=== PATIENT | female | born 1950 | race Caucasian/White ===

== ENCOUNTER 2021-04-11 12:31 | Inpatient (IN) | payer MEDICARE, BC ==
[2021-04-11 12:57] LABS: #Lymphocytes 1.1 thou/uL (1.20-3.40); #Monocytes 0.8 thou/uL (0.11-0.59); #Neutrophils 7.8 thou/uL (1.40-6.50); %Basophils 0.2 % (0.0-1.0); %Eosinophils 0.1 % (0.0-10.0); %Lymphocytes 11.6 % (21.0-51.0); %Monocytes 8.2 % (0.0-10.0); %Neutrophils 79.9 % (42.0-75.0); Hemoglobin 13.5 g/dL (12.0-16.0); Mean Corpuscular HGB CONC 31.1 g/dL (32.0-36.0); Mean Corpuscular Hemoglobin 29.1 pg (27.0-31.0); Mean Corpuscular Volume 93.6 fL (78.0-98.0); Mean Platelet Volume 7.6 fL (7.4-10.4); Platelet Count 504 thou/uL (130-400); RBC Distribution Width 14.5 % (11.5-14.5); Red Blood Cell (RBC) Count 4.62 mill/uL (4.20-5.40); White Blood Cell (WBC) Count 9.8 thou/uL (4.8-10.8)
[2021-04-11 13:23] LABS: ALT (SGPT) 12 U/L (8-55); AST (SGOT) 19 U/L (5-34); Albumin 3.7 g/dL (3.4-4.8); Alkaline Phosphatase 144 U/L (40-110); Anion Gap 27 mmol/L (10-20); BUN (Urea Nitrogen) 58 mg/dL (9.8-20.1); Bilirubin, Total 0.3 mg/dL (0.2-1.2); Calc. Creatinine Clearance 0 mL/min (70-130); Calcium 10.1 mg/dL (7.8-10.44); Carbon Dioxide 11 mmol/L (23-31); Chloride 108 mmol/L (98-107); Globulin 3.1 g/dL (2.4-3.5); Glucose 112 mg/dL (80-115); Lipase 16 U/L (8-78); Potassium 5.3 mmol/L (3.5-5.1); Protein, Total 6.8 g/dL (5.8-8.1); Sodium 141 mmol/L (136-145)
[2021-04-11 13:48] LABS: CKMB 6.3 ng/mL (0-6.6)
[2021-04-11] MEDS ORDERED: Heparin 25,000 units/D5W 500 ML ONE (13:54)
[2021-04-11] MEDS ORDERED: Heparin 10,000 UNITS/ 10 ML VIAL ONE (13:54)
[2021-04-11] MEDS ORDERED: Ondansetron PF 4 MG/2 ML Vial ONE (14:00)
[2021-04-11 14:41] LABS: INR-International Normal Ratio 1.2; PTT 31.9 sec (22.9-36.1)
[2021-04-11 15:59] LABS: Troponin I 0.648 ng/mL (< 0.028)
[2021-04-11] MEDS ORDERED: Ondansetron PF 4 MG/2 ML Vial IVP PRN (16:05)
[2021-04-11] MEDS: Sodium Chloride 0.9% 1,000 ML IV SCH (16:43)
[2021-04-11 19:45] LABS: SARS-CoV-2 NAA Rapid Test DETECTED (NotDetected)
[2021-04-11 20:00] LABS: Troponin I 0.513 ng/mL (< 0.028)
[2021-04-11] MEDS: Metoprolol Tartrate 25 MG TAB PO SCH (22:11)
[2021-04-11] MEDS: Atorvastatin Calcium 40 MG TAB PO SCH (22:11)
[2021-04-11 23:09] LABS: Critical Call Chem Troponin I RESULT DECREASING
[2021-04-12] MEDS: Sodium Chloride 0.9% 1,000 ML IV SCH ×2 (04:38→11:10)
[2021-04-12 05:15] LABS: PTT 140.7 sec (22.9-36.1)
[2021-04-12 05:17] LABS: #Lymphocytes 1.4 thou/uL (1.20-3.40); #Monocytes 0.8 thou/uL (0.11-0.59); #Neutrophils 4.9 thou/uL (1.40-6.50); %Basophils 0.1 % (0.0-1.0); %Eosinophils 0.1 % (0.0-10.0); %Lymphocytes 19.7 % (21.0-51.0); %Monocytes 10.9 % (0.0-10.0); %Neutrophils 69.2 % (42.0-75.0); Mean Corpuscular HGB CONC 32.5 g/dL (32.0-36.0); Mean Corpuscular Volume 92.5 fL (78.0-98.0); Mean Platelet Volume 7.6 fL (7.4-10.4); Platelet Count 365 thou/uL (130-400); RBC Distribution Width 14.6 % (11.5-14.5); Red Blood Cell (RBC) Count 4.01 mill/uL (4.20-5.40); White Blood Cell (WBC) Count 7.1 thou/uL (4.8-10.8)
[2021-04-12 05:28] LABS: Anion Gap 16 mmol/L (10-20); BUN (Urea Nitrogen) 50 mg/dL (9.8-20.1); Calc. Creatinine Clearance 42 mL/min (70-130); Calcium 9.4 mg/dL (7.8-10.44); Carbon Dioxide 17 mmol/L (23-31); Chloride 113 mmol/L (98-107); Glucose 90 mg/dL (80-115); Potassium 3.9 mmol/L (3.5-5.1); Sodium 142 mmol/L (136-145)
[2021-04-12] MEDS ORDERED: Enoxaparin Sodium 30 MG/0.3 ML SYRINGE SC SCH (09:00)
[2021-04-12] MEDS: Metoprolol Tartrate 25 MG TAB PO SCH ×2 (09:37→20:10)
[2021-04-12] MEDS: Aspirin 81 mg Enteric Coated Tablet PO SCH (09:38)
[2021-04-12] MEDS: HYDROcodone/Acetaminophen 5/325 mg Tablet PO PRN (16:18)
[2021-04-12] MEDS: Atorvastatin Calcium 40 MG TAB PO SCH (20:10)
[2021-04-13] MEDS: Metoprolol Tartrate 25 MG TAB PO SCH ×2 (08:13→20:28)
[2021-04-13] MEDS: Sodium Chloride 0.9% 1,000 ML IV SCH ×2 (08:14→21:46)
[2021-04-13] MEDS: Aspirin 81 mg Enteric Coated Tablet PO SCH (08:14)
[2021-04-13] MEDS: HYDROcodone/Acetaminophen 5/325 mg Tablet PO PRN ×2 (14:48→20:29)
[2021-04-13] MEDS: Atorvastatin Calcium 40 MG TAB PO SCH (20:28)
[2021-04-13] MEDS: Sodium Bicarbonate Tab 325 MG TAB PO SCH (20:28)
[2021-04-14 08:05] LABS: #Eosinphils 0.1 thou/uL (0.0-0.7); #Lymphocytes 1.4 thou/uL (1.20-3.40); #Monocytes 0.5 thou/uL (0.11-0.59); #Neutrophils 3.7 thou/uL (1.40-6.50); %Basophils 0.5 % (0.0-1.0); %Eosinophils 1.2 % (0.0-10.0); %Lymphocytes 24.4 % (21.0-51.0); %Monocytes 9.5 % (0.0-10.0); %Neutrophils 64.4 % (42.0-75.0); Hemoglobin 11.7 g/dL (12.0-16.0); Mean Corpuscular HGB CONC 34.6 g/dL (32.0-36.0); Mean Corpuscular Hemoglobin 32.4 pg (27.0-31.0); Mean Corpuscular Volume 93.6 fL (78.0-98.0); Mean Platelet Volume 7.7 fL (7.4-10.4); Platelet Count 250 thou/uL (130-400); White Blood Cell (WBC) Count 5.7 thou/uL (4.8-10.8)
[2021-04-14 08:26] LABS: Anion Gap 11 mmol/L (10-20); BUN (Urea Nitrogen) 9 mg/dL (9.8-20.1); Calc. Creatinine Clearance 84 mL/min (70-130); Calcium 8.3 mg/dL (7.8-10.44); Carbon Dioxide 19 mmol/L (23-31); Chloride 112 mmol/L (98-107); Glucose 89 mg/dL (80-115); Potassium 3.2 mmol/L (3.5-5.1); Sodium 139 mmol/L (136-145)
[2021-04-14] MEDS: Metoprolol Tartrate 25 MG TAB PO SCH ×2 (08:57→20:23)
[2021-04-14] MEDS: Sodium Bicarbonate Tab 325 MG TAB PO SCH ×2 (08:57→20:23)
[2021-04-14] MEDS: Aspirin 81 mg Enteric Coated Tablet PO SCH (08:57)
[2021-04-14] MEDS: Sodium Chloride 0.9% 1,000 ML IV SCH (11:49)
[2021-04-14] MEDS: Acetaminophen 325 MG TAB PO PRN (11:49)
[2021-04-14 19:02] VITALS: BMI 22.5
[2021-04-14] MEDS: Atorvastatin Calcium 40 MG TAB PO SCH (20:23)
[2021-04-15] MEDS: Sodium Chloride 0.9% 1,000 ML IV SCH ×2 (02:50→17:18)
[2021-04-15 05:46] LABS: #Eosinphils 0.1 thou/uL (0.0-0.7); #Lymphocytes 1.4 thou/uL (1.20-3.40); #Monocytes 0.9 thou/uL (0.11-0.59); #Neutrophils 3.9 thou/uL (1.40-6.50); %Basophils 0.6 % (0.0-1.0); %Lymphocytes 22.4 % (21.0-51.0); %Monocytes 13.9 % (0.0-10.0); %Neutrophils 62.1 % (42.0-75.0); Hemoglobin 10.9 g/dL (12.0-16.0); Mean Corpuscular HGB CONC 32.9 g/dL (32.0-36.0); Mean Corpuscular Hemoglobin 30.8 pg (27.0-31.0); Mean Corpuscular Volume 93.6 fL (78.0-98.0); Mean Platelet Volume 7.9 fL (7.4-10.4); Platelet Count 241 thou/uL (130-400); RBC Distribution Width 13.8 % (11.5-14.5); Red Blood Cell (RBC) Count 3.54 mill/uL (4.20-5.40); White Blood Cell (WBC) Count 6.3 thou/uL (4.8-10.8)
[2021-04-15 06:00] LABS: Anion Gap 11 mmol/L (10-20); BUN (Urea Nitrogen) 5 mg/dL (9.8-20.1); Calc. Creatinine Clearance 97 mL/min (70-130); Calcium 8.3 mg/dL (7.8-10.44); Carbon Dioxide 25 mmol/L (23-31); Chloride 105 mmol/L (98-107); Glucose 100 mg/dL (80-115); Sodium 138 mmol/L (136-145)
[2021-04-15 06:03] LABS: Potassium 2.9 mmol/L (3.5-5.1)
[2021-04-15] MEDS ORDERED: Electrolyte Replacement Protocol FS PRN (06:45)
[2021-04-15] MEDS: Potassium Chloride 20 MEQ TAB PO SCH ×2 (09:52→13:16)
[2021-04-15] MEDS: Potassium Bicarbonate/Cit Ac 20 MEQ TAB PO SCH ×2 (09:52→13:17)
[2021-04-15] MEDS: Aspirin 81 mg Enteric Coated Tablet PO SCH (09:52)
[2021-04-15] MEDS: Metoprolol Tartrate 25 MG TAB PO SCH ×2 (09:53→20:42)
[2021-04-15] MEDS: Sodium Bicarbonate Tab 325 MG TAB PO SCH ×2 (09:53→20:43)
[2021-04-15 14:14] LABS: Potassium 3.5 mmol/L (3.5-5.1)
[2021-04-15] MEDS: Atorvastatin Calcium 40 MG TAB PO SCH (20:42)
[2021-04-15] MEDS: HYDROcodone/Acetaminophen 5/325 mg Tablet PO PRN (20:55)
[2021-04-16 05:37] LABS: Anion Gap 9 mmol/L (10-20); BUN (Urea Nitrogen) 4 mg/dL (9.8-20.1); Calc. Creatinine Clearance 97 mL/min (70-130); Calcium 8.4 mg/dL (7.8-10.44); Carbon Dioxide 25 mmol/L (23-31); Chloride 108 mmol/L (98-107); Glucose 94 mg/dL (80-115); Sodium 138 mmol/L (136-145)
[2021-04-16 05:59] LABS: Hemoglobin 10.8 g/dL (12.0-16.0); Mean Corpuscular HGB CONC 32.9 g/dL (32.0-36.0); Mean Corpuscular Hemoglobin 30.8 pg (27.0-31.0); Mean Corpuscular Volume 93.4 fL (78.0-98.0); Mean Platelet Volume 8.2 fL (7.4-10.4); Platelet Count 235 thou/uL (130-400); RBC Distribution Width 13.9 % (11.5-14.5); White Blood Cell (WBC) Count 6.5 thou/uL (4.8-10.8)
[2021-04-16 06:02] LABS: Band 6 % (5-11); Lymphocytes 21 % (21-51); MDiff Complete? YES; Monocytes 14 % (0-10); Neutrophil 59 % (42-75)
[2021-04-16] MEDS: Sodium Chloride 0.9% 1,000 ML IV SCH ×2 (07:30→20:27)
[2021-04-16] MEDS: Metoprolol Tartrate 25 MG TAB PO SCH ×2 (09:23→20:22)
[2021-04-16] MEDS: Sodium Bicarbonate Tab 325 MG TAB PO SCH ×2 (09:23→20:23)
[2021-04-16] MEDS: Aspirin 81 mg Enteric Coated Tablet PO SCH (09:25)
[2021-04-16] MEDS: HYDROcodone/Acetaminophen 5/325 mg Tablet PO PRN ×2 (14:35→20:23)
[2021-04-16] MEDS: Atorvastatin Calcium 40 MG TAB PO SCH (20:21)
[2021-04-17 05:44] LABS: Anion Gap 12 mmol/L (10-20); BUN (Urea Nitrogen) 8 mg/dL (9.8-20.1); Calc. Creatinine Clearance 90 mL/min (70-130); Calcium 8.3 mg/dL (7.8-10.44); Carbon Dioxide 24 mmol/L (23-31); Chloride 107 mmol/L (98-107); Glucose 114 mg/dL (80-115); Potassium 3.8 mmol/L (3.5-5.1); Sodium 139 mmol/L (136-145)
[2021-04-17 06:59] LABS: Band 6 % (5-11); Eosinophils 1 % (0-10); Hemoglobin 9.8 g/dL (12.0-16.0); Lymphocytes 26 % (21-51); MDiff Complete? YES; Mean Corpuscular HGB CONC 33.1 g/dL (32.0-36.0); Mean Corpuscular Hemoglobin 31.1 pg (27.0-31.0); Mean Platelet Volume 8.1 fL (7.4-10.4); Monocytes 17 % (0-10); Neutrophil 50 % (42-75); Platelet Count 248 thou/uL (130-400); RBC Distribution Width 13.9 % (11.5-14.5); Red Blood Cell (RBC) Count 3.16 mill/uL (4.20-5.40); White Blood Cell (WBC) Count 6.9 thou/uL (4.8-10.8)
[2021-04-17] MEDS: Sodium Bicarbonate Tab 325 MG TAB PO SCH ×2 (08:51→19:33)
[2021-04-17] MEDS: Aspirin 81 mg Enteric Coated Tablet PO SCH (08:51)
[2021-04-17] MEDS: Metoprolol Tartrate 25 MG TAB PO SCH (08:52)
[2021-04-17] MEDS: HYDROcodone/Acetaminophen 5/325 mg Tablet PO PRN ×2 (08:52→19:33)
[2021-04-17] MEDS: Sodium Chloride 0.9% 1,000 ML IV SCH ×2 (09:14→22:39)
[2021-04-17] MEDS: Atorvastatin Calcium 40 MG TAB PO SCH (19:33)
[2021-04-18 06:45] LABS: Anion Gap 13 mmol/L (10-20); BUN (Urea Nitrogen) 8 mg/dL (9.8-20.1); Calc. Creatinine Clearance 90 mL/min (70-130); Calcium 8.5 mg/dL (7.8-10.44); Carbon Dioxide 26 mmol/L (23-31); Chloride 105 mmol/L (98-107); Glucose 96 mg/dL (80-115); Hemoglobin 9.7 g/dL (12.0-16.0); Mean Corpuscular HGB CONC 32.5 g/dL (32.0-36.0); Mean Corpuscular Hemoglobin 30.5 pg (27.0-31.0); Mean Corpuscular Volume 93.9 fL (78.0-98.0); Platelet Count 286 thou/uL (130-400); Potassium 3.7 mmol/L (3.5-5.1); Red Blood Cell (RBC) Count 3.18 mill/uL (4.20-5.40); Sodium 140 mmol/L (136-145)
[2021-04-18 06:52] LABS: Band 6 % (5-11); Eosinophils 1 % (0-10); Lymphocytes 25 % (21-51); MDiff Complete? YES; Monocytes 17 % (0-10); Neutrophil 51 % (42-75)
[2021-04-18] MEDS: Aspirin 81 mg Enteric Coated Tablet PO SCH (08:47)
[2021-04-18] MEDS: Valsartan 80 MG TAB PO SCH (08:47)
[2021-04-18] MEDS: Sodium Bicarbonate Tab 325 MG TAB PO SCH ×2 (08:47→20:03)
[2021-04-18] MEDS: Sodium Chloride 0.9% 1,000 ML IV SCH (12:02)
[2021-04-18] MEDS: Atorvastatin Calcium 40 MG TAB PO SCH (20:03)
[2021-04-18] MEDS: HYDROcodone/Acetaminophen 5/325 mg Tablet PO PRN (20:07)
[2021-04-19 06:02] LABS: Anion Gap 10 mmol/L (10-20); BUN (Urea Nitrogen) 5 mg/dL (9.8-20.1); Calc. Creatinine Clearance 84 mL/min (70-130); Calcium 8.6 mg/dL (7.8-10.44); Carbon Dioxide 29 mmol/L (23-31); Chloride 102 mmol/L (98-107); Glucose 89 mg/dL (80-115); Potassium 3.3 mmol/L (3.5-5.1); Sodium 138 mmol/L (136-145)
[2021-04-19] MEDS: Acetaminophen 325 MG TAB PO PRN (06:03)
[2021-04-19 06:05] LABS: Band 1 % (5-11); Eosinophils 3 % (0-10); Hemoglobin 9.8 g/dL (12.0-16.0); Lymphocytes 24 % (21-51); MDiff Complete? YES; Mean Corpuscular HGB CONC 33.2 g/dL (32.0-36.0); Mean Corpuscular Hemoglobin 31.1 pg (27.0-31.0); Mean Corpuscular Volume 93.5 fL (78.0-98.0); Mean Platelet Volume 7.9 fL (7.4-10.4); Monocytes 17 % (0-10); Neutrophil 55 % (42-75); Platelet Count 294 thou/uL (130-400); Platelet Morphology Comment Appears Adequate; Red Blood Cell (RBC) Count 3.15 mill/uL (4.20-5.40); White Blood Cell (WBC) Count 6.8 thou/uL (4.8-10.8)
[2021-04-19] MEDS ORDERED: Potassium Chloride 20 MEQ TAB PO SCH (07:00)
[2021-04-19] MEDS: Sodium Bicarbonate Tab 325 MG TAB PO SCH ×2 (08:23→22:19)
[2021-04-19] MEDS: Aspirin 81 mg Enteric Coated Tablet PO SCH (08:23)
[2021-04-19] MEDS: Valsartan 80 MG TAB PO SCH (08:23)
[2021-04-19] MEDS: Amlodipine 5 MG TAB PO SCH (08:23)
[2021-04-19] MEDS: HYDROcodone/Acetaminophen 5/325 mg Tablet PO PRN (17:37)
[2021-04-19] MEDS: Atorvastatin Calcium 40 MG TAB PO SCH (22:19)
[2021-04-20 05:12] LABS: Anion Gap 12 mmol/L (10-20); BUN (Urea Nitrogen) 11 mg/dL (9.8-20.1); Calc. Creatinine Clearance 78 mL/min (70-130); Calcium 8.6 mg/dL (7.8-10.44); Carbon Dioxide 26 mmol/L (23-31); Chloride 104 mmol/L (98-107); Glucose 118 mg/dL (80-115); Sodium 138 mmol/L (136-145)
[2021-04-20 05:26] LABS: Hemoglobin 9.2 g/dL (12.0-16.0); Mean Corpuscular HGB CONC 33.1 g/dL (32.0-36.0); Mean Corpuscular Hemoglobin 31.3 pg (27.0-31.0); Mean Corpuscular Volume 94.5 fL (78.0-98.0); Mean Platelet Volume 7.4 fL (7.4-10.4); Platelet Count 339 thou/uL (130-400); RBC Distribution Width 14.1 % (11.5-14.5); Red Blood Cell (RBC) Count 2.93 mill/uL (4.20-5.40); White Blood Cell (WBC) Count 8.3 thou/uL (4.8-10.8)
[2021-04-20 05:27] LABS: Band 4 % (5-11); Hypochromia SLIGHT = 6-15 cells (100X) (0-5/hpf); Lymphocytes 14 % (21-51); MDiff Complete? YES; Monocytes 13 % (0-10); Neutrophil 69 % (42-75); Platelet Morphology Comment Appears Adequate
[2021-04-20] MEDS: Amlodipine 5 MG TAB PO SCH (09:18)
[2021-04-20] MEDS: Aspirin 81 mg Enteric Coated Tablet PO SCH (09:19)
[2021-04-20] MEDS: Sodium Bicarbonate Tab 325 MG TAB PO SCH ×2 (09:21→20:52)
[2021-04-20] MEDS: Valsartan 80 MG TAB PO SCH (09:22)
[2021-04-20] MEDS ORDERED: Calcium Carbonate 500 MG ChewTAB PO PRN (20:12)
[2021-04-20] MEDS: Atorvastatin Calcium 40 MG TAB PO SCH (20:51)
[2021-04-21] MEDS ORDERED: Nitroglycerin 0.4 MG TAB (25 Tab Bottle) SL PRN (00:18)
[2021-04-21] MEDS: Acetaminophen 325 MG TAB PO PRN (00:33)
[2021-04-21 01:19] LABS: Troponin I 0.134 ng/mL (< 0.028)
[2021-04-21 05:40] LABS: #Eosinphils 0.1 thou/uL (0.0-0.7); #Lymphocytes 2.6 thou/uL (1.20-3.40); #Monocytes 1.2 thou/uL (0.11-0.59); #Neutrophils 4.2 thou/uL (1.40-6.50); %Basophils 0.3 % (0.0-1.0); %Lymphocytes 32.6 % (21.0-51.0); %Monocytes 14.5 % (0.0-10.0); %Neutrophils 51.6 % (42.0-75.0); Hemoglobin 9.7 g/dL (12.0-16.0); Mean Corpuscular HGB CONC 33.6 g/dL (32.0-36.0); Mean Corpuscular Hemoglobin 31.5 pg (27.0-31.0); Mean Corpuscular Volume 93.7 fL (78.0-98.0); Mean Platelet Volume 7.3 fL (7.4-10.4); Platelet Count 340 thou/uL (130-400); RBC Distribution Width 14.2 % (11.5-14.5); Red Blood Cell (RBC) Count 3.09 mill/uL (4.20-5.40); White Blood Cell (WBC) Count 8.1 thou/uL (4.8-10.8)
[2021-04-21 06:06] LABS: Anion Gap 11 mmol/L (10-20); BUN (Urea Nitrogen) 10 mg/dL (9.8-20.1); Calc. Creatinine Clearance 83 mL/min (70-130); Calcium 8.8 mg/dL (7.8-10.44); Carbon Dioxide 26 mmol/L (23-31); Chloride 104 mmol/L (98-107); Glucose 97 mg/dL (80-115); Potassium 3.5 mmol/L (3.5-5.1); Sodium 137 mmol/L (136-145)
[2021-04-21] MEDS ORDERED: Potassium Chloride 20 MEQ TAB PO SCH (06:30)
[2021-04-21] MEDS ORDERED: Potassium Bicarbonate/Cit Ac 20 MEQ TAB PO SCH (06:45)
[2021-04-21] MEDS: Valsartan 80 MG TAB PO SCH (08:30)
[2021-04-21] MEDS: Amlodipine 5 MG TAB PO SCH (08:30)
[2021-04-21] MEDS: Sodium Bicarbonate Tab 325 MG TAB PO SCH ×2 (08:30→20:11)
[2021-04-21] MEDS: Aspirin 81 mg Enteric Coated Tablet PO SCH (08:30)
[2021-04-21] MEDS: Atorvastatin Calcium 40 MG TAB PO SCH (20:11)
[2021-04-21] MEDS ORDERED: Lidocaine 5% Patch TD SCH (21:15)
[2021-04-22 05:38] LABS: #Eosinphils 0.1 thou/uL (0.0-0.7); #Lymphocytes 2.7 thou/uL (1.20-3.40); #Monocytes 1.1 thou/uL (0.11-0.59); #Neutrophils 5.2 thou/uL (1.40-6.50); %Basophils 0.2 % (0.0-1.0); %Eosinophils 1.1 % (0.0-10.0); %Monocytes 12.3 % (0.0-10.0); %Neutrophils 57.4 % (42.0-75.0); Mean Corpuscular HGB CONC 32.2 g/dL (32.0-36.0); Mean Corpuscular Hemoglobin 30.7 pg (27.0-31.0); Mean Corpuscular Volume 95.5 fL (78.0-98.0); Mean Platelet Volume 7.3 fL (7.4-10.4); Platelet Count 335 thou/uL (130-400); RBC Distribution Width 14.3 % (11.5-14.5); Red Blood Cell (RBC) Count 3.25 mill/uL (4.20-5.40); White Blood Cell (WBC) Count 9.1 thou/uL (4.8-10.8)
[2021-04-22 06:00] LABS: Anion Gap 11 mmol/L (10-20); BUN (Urea Nitrogen) 13 mg/dL (9.8-20.1); Calc. Creatinine Clearance 77 mL/min (70-130); Calcium 8.9 mg/dL (7.8-10.44); Carbon Dioxide 25 mmol/L (23-31); Chloride 103 mmol/L (98-107); Glucose 98 mg/dL (80-115); Potassium 3.7 mmol/L (3.5-5.1); Sodium 135 mmol/L (136-145)
[2021-04-22] MEDS: Amlodipine 5 MG TAB PO SCH (09:07)
[2021-04-22] MEDS: Aspirin 81 mg Enteric Coated Tablet PO SCH (09:07)
[2021-04-22] MEDS: Sodium Bicarbonate Tab 325 MG TAB PO SCH ×2 (09:09→22:26)
[2021-04-22] MEDS: Valsartan 80 MG TAB PO SCH (09:09)
[2021-04-22] MEDS: Lidocaine Patch Removal TOP SCH (09:21)
[2021-04-22] MEDS: Atorvastatin Calcium 40 MG TAB PO SCH (22:26)
[2021-04-22] MEDS: Lidocaine 5% Patch TD SCH (22:26)
[2021-04-23 04:51] LABS: #Eosinphils 0.1 thou/uL (0.0-0.7); #Lymphocytes 2.4 thou/uL (1.20-3.40); #Monocytes 0.9 thou/uL (0.11-0.59); #Neutrophils 5.4 thou/uL (1.40-6.50); %Basophils 0.4 % (0.0-1.0); %Lymphocytes 27.1 % (21.0-51.0); %Monocytes 10.2 % (0.0-10.0); %Neutrophils 61.3 % (42.0-75.0); Hemoglobin 9.6 g/dL (12.0-16.0); Mean Corpuscular HGB CONC 33.1 g/dL (32.0-36.0); Mean Corpuscular Hemoglobin 30.8 pg (27.0-31.0); Mean Corpuscular Volume 93.2 fL (78.0-98.0); Platelet Count 364 thou/uL (130-400); RBC Distribution Width 14.1 % (11.5-14.5); Red Blood Cell (RBC) Count 3.12 mill/uL (4.20-5.40); White Blood Cell (WBC) Count 8.8 thou/uL (4.8-10.8)
[2021-04-23 05:19] LABS: Anion Gap 15 mmol/L (10-20); BUN (Urea Nitrogen) 12 mg/dL (9.8-20.1); Calc. Creatinine Clearance 67 mL/min (70-130); Calcium 9.2 mg/dL (7.8-10.44); Carbon Dioxide 23 mmol/L (23-31); Chloride 104 mmol/L (98-107); Glucose 105 mg/dL (80-115); Potassium 3.9 mmol/L (3.5-5.1); Sodium 138 mmol/L (136-145)
[2021-04-23] MEDS: Valsartan 80 MG TAB PO SCH (08:58)
[2021-04-23] MEDS: Sodium Bicarbonate Tab 325 MG TAB PO SCH ×2 (08:58→20:03)
[2021-04-23] MEDS: Aspirin 81 mg Enteric Coated Tablet PO SCH (08:59)
[2021-04-23] MEDS: Amlodipine 5 MG TAB PO SCH (08:59)
[2021-04-23] MEDS: Lidocaine Patch Removal TOP SCH (09:02)
[2021-04-23] MEDS: Lidocaine 5% Patch TD SCH (20:03)
[2021-04-23] MEDS: Atorvastatin Calcium 40 MG TAB PO SCH (20:03)
[2021-04-24 06:21] LABS: #Basophils 0.1 thou/uL (0.0-0.2); #Eosinphils 0.1 thou/uL (0.0-0.7); #Lymphocytes 2.6 thou/uL (1.20-3.40); #Monocytes 0.9 thou/uL (0.11-0.59); #Neutrophils 5.7 thou/uL (1.40-6.50); %Basophils 0.7 % (0.0-1.0); %Eosinophils 1.2 % (0.0-10.0); %Lymphocytes 27.8 % (21.0-51.0); %Monocytes 9.2 % (0.0-10.0); %Neutrophils 61.1 % (42.0-75.0); Hemoglobin 9.5 g/dL (12.0-16.0); Mean Corpuscular HGB CONC 32.4 g/dL (32.0-36.0); Mean Corpuscular Hemoglobin 30.4 pg (27.0-31.0); Mean Corpuscular Volume 93.8 fL (78.0-98.0); Mean Platelet Volume 7.6 fL (7.4-10.4); Platelet Count 359 thou/uL (130-400); RBC Distribution Width 14.3 % (11.5-14.5); Red Blood Cell (RBC) Count 3.13 mill/uL (4.20-5.40); White Blood Cell (WBC) Count 9.3 thou/uL (4.8-10.8)
[2021-04-24 06:33] LABS: Anion Gap 14 mmol/L (10-20); BUN (Urea Nitrogen) 19 mg/dL (9.8-20.1); Calc. Creatinine Clearance 71 mL/min (70-130); Calcium 9.1 mg/dL (7.8-10.44); Carbon Dioxide 24 mmol/L (23-31); Glucose 95 mg/dL (80-115); Potassium 4.3 mmol/L (3.5-5.1)
[2021-04-24 07:36] LABS: Chloride 102 mmol/L (98-107); Sodium 136 mmol/L (136-145)
[2021-04-24] MEDS: Amlodipine 5 MG TAB PO SCH (08:16)
[2021-04-24] MEDS: Sodium Bicarbonate Tab 325 MG TAB PO SCH ×2 (08:16→22:23)
[2021-04-24] MEDS: Aspirin 81 mg Enteric Coated Tablet PO SCH (08:16)
[2021-04-24] MEDS: Valsartan 80 MG TAB PO SCH (08:16)
[2021-04-24] MEDS: Lidocaine Patch Removal TOP SCH (08:17)
[2021-04-24] MEDS ORDERED: SUGAMMADEX SODIUM 200 MG/2 ML VIAL ONE (14:00)
[2021-04-24] MEDS: Lidocaine 5% Patch TD SCH (22:23)
[2021-04-24] MEDS: Atorvastatin Calcium 40 MG TAB PO SCH (22:23)
[2021-04-25] MEDS: Amlodipine 5 MG TAB PO SCH (10:08)
[2021-04-25] MEDS: Sodium Bicarbonate Tab 325 MG TAB PO SCH (10:08)
[2021-04-25] MEDS: Aspirin 81 mg Enteric Coated Tablet PO SCH (10:09)
[2021-04-25] MEDS: Valsartan 80 MG TAB PO SCH (10:09)
[2021-04-25] MEDS: Acetaminophen 325 MG TAB PO PRN (10:10)
[2021-04-25] MEDS: Lidocaine Patch Removal TOP SCH (10:11)
[2021-04-25 20:19] VITALS: BP 141/49; TEMP 98
== END 2021-04-25 20:17 | disposition swing bed (61) | DRG 177 ==
LOC: EEVIPCON 12:31 → ERS 12:31 → ERHOLD 14:30 → EEVIPCON 14:30 → 2SW 21:26
PROVIDERS: ADMIT Internal Medicine; ATTEND Internal Medicine
PROC: 8E0ZXY6 Isolation (ICD-10-PCS; principal; 2021-04-11)
DX: U07.1 COVID-19 (principal); I21.A1 Myocardial infarction type 2; S32.10XA Unspecified fracture of sacrum, initial encounter for closed fracture; I69.354 Hemiplegia and hemiparesis following cerebral infarction affecting left non-dominant side; N17.9 Acute kidney failure, unspecified; F32.A Depression, unspecified; E87.5 Hyperkalemia; F41.9 Anxiety disorder, unspecified; E87.6 Hypokalemia; W18.30XA Fall on same level, unspecified, initial encounter; Z88.8 Allergy status to other drugs, medicaments and biological substances; Z88.1 Allergy status to other antibiotic agents; Z91.041 Radiographic dye allergy status; Z90.49 Acquired absence of other specified parts of digestive tract; Z87.891 Personal history of nicotine dependence
CPT/HCPCS: 36415; 70450; 71045; 72125; 72131; 80048; 80053; 82553; 83690; 83880; 84484; 85025; 85610; 85730; 93005; 93010; 93306; 96374; 96375; J1644; J2405; J7050; U0002